=== PATIENT | male | born 1975 | race African-American/Black ===

== ENCOUNTER 2024-03-24 18:20 | Emergency (ER) | payer MEDICAID ==
[~2024-03-24] VITALS: Ht 170.2 cm; Wt 65.8 kg
[2024-03-24 18:50] VITALS: TEMP 98.4
[2024-03-24] MEDS ORDERED: LIDOCAINE 5% (PATCH) 1 EA PATCH TP ONE (20:17)
[2024-03-24] MEDS ORDERED: ACETAMINOPHEN ES 500 MG TABLET ONE (20:17)
[2024-03-24] MEDS ORDERED: KETOROLAC TROMETHAMINE 15 MG/ML VIAL ONE (20:17)
[2024-03-24] MEDS: KETOROLAC TROMETHAMINE 15 MG/ML VIAL IM ONE (20:26)
[2024-03-24] MEDS: LIDOCAINE 5% (PATCH) 1 EA PATCH TP ONE (20:27)
[2024-03-24] MEDS: ACETAMINOPHEN ES 500 MG TABLET PO ONE (20:27)
[2024-03-24] MEDS ORDERED: IBUP-1955 PO (21:22)
[2024-03-24] MEDS ORDERED: CYCL5TAB PO (21:22)
[2024-03-24] MEDS ORDERED: ACET-2605 PO (21:22)
[2024-03-24 21:33] VITALS: BP 128/77; O2SAT 98
== END 2024-03-24 21:36 | disposition hospice, home (50) ==
LOC: ER 18:23
DX: R42 Dizziness and giddiness (principal); R51.9 Headache, unspecified; M25.511 Pain in right shoulder; M54.59 Other low back pain; Z60.2 Problems related to living alone; V23.49XA Other motorcycle driver injured in collision with car, pick-up truck or van in traffic accident, initial encounter; Y93.89 Activity, other specified; Y92.488 Other paved roadways as the place of occurrence of the external cause; Y99.8 Other external cause status
CPT/HCPCS: 99285; 96372; 72100; 72070; 73030; J1885

== ENCOUNTER 2025-06-01 03:54 | Emergency (ER) | payer MEDICAID, OTHER ==
[~2025-06-01] VITALS: Ht 180.3 cm; Wt 81.6 kg
[~2025-06-01 03:54] MED LIST: ACET-2605 PO; CYCL5TAB PO; IBUP-1955 PO
[2025-06-01 05:30] VITALS: BP 155/84; TEMP 98.3; O2SAT 96
[2025-06-01] MEDS ORDERED: DOCU-141 PO (06:21)
[2025-06-01] MEDS ORDERED: HYDR25SU33 RC (06:21)
== END 2025-06-01 06:28 | disposition home or self-care (01) ==
LOC: ER 04:01
DX: K64.4 Residual hemorrhoidal skin tags (principal); K59.00 Constipation, unspecified